=== PATIENT | male | born 1960 | race Caucasian/White ===

== ENCOUNTER 2019-04-22 08:00 | Observation (INO) | payer BC, SELFPAY ==
[2019-04-22] VITALS (10 sets, daily range): BP systolic 117–141; BP diastolic 69–85; PULSE 70–96; RESP 16–20; TEMP 37.3–38.7; O2SAT 91–99; BMI 24.3
--- NOTE | 2019-04-22 | ECHO_ITS ---
Patient Info Name: Lauro Schmidt Age: 58 years : 1960 Gender: Male Ht: 67 in Wt: 155 lbs BSA: 1.83 m2 HR: 70 bpm BP: 120 / 69 mmHg Heart Rhythm: Sinus Rhythm Technical Quality: Good Exam Date: 04/22/2019 4:14 PM Exam Location: [facility] Patient Status: Inpatient Admit Date: 04/22/2019 Staff Ordering Physician: Barbie Rosado NP Learning Support Specialist: Yee Duncan RDCS Attending Provider: Jovana Cain MD Referring Physician: Ashlee KING; Exam Type: CA echo doppler w bubble study Study Info Indications - cva tia Complete two-dimensional, color flow and Doppler transthoracic echocardiogram is performed with agitated saline. Contrast/Agitated Saline Contrast/Ag. Saline: Agitated Saline Amount: 20.00 ml Administered By: Akash Irby RN Existing IV Access: Yes IV Access Condition: patent with no signs of infiltration Summary 1. Left ventricular chamber size, wall thickness, systolic and diastolic function are normal with no regional wall motion abnormalities with an estimated ejection fraction of 65-70%. 2. Right ventricular chamber dimension is mildly enlarged. 3. No pulmonary hypertension, estimated pulmonary arterial systolic pressure is 32 mmHg. 4. No significant valve disease. 5. Atrial septum appears intact. There is no evidence of intracardiac shunting by bubble study during normal respiration. (The bubble study with Valsalva was of poor quality and if TIA is strongly suspected, consider repeating the bubble study w/ Valsalva.). 6. Normal sinus rhythm. Left Ventricle Left ventricular chamber dimension is normal. Left ventricular systolic function is normal, estimated at 65-70%. There is no increased left ventricular wall thickness. Left ventricular septal wall motion is normal. The left ventricular diastolic function is normal. Left ventricular chamber size, wall thickness, systolic and diastolic function are normal with no regional wall motion abnormalities with an estimated ejection fraction of 65-70%. Right Ventricle Right ventricular chamber dimension is mildly enlarged. Right ventricular systolic function is normal. Left Atria Left atrial chamber dimension is normal. Right Atria Right atrial chamber dimension is normal. Atrial Septum Intact interatrial septum visualized by Empty imaging. Atrial septum appears intact. There is no evidence of intracardiac shunting by bubble study during normal respiration. (The bubble study with Valsalva was of poor quality and if TIA is strongly suspected, consider repeating the bubble study w/ Valsalva.). Aortic Valve The aortic valve is trileaflet. There is no aortic valve sclerosis. There is no aortic valve stenosis. There is no aortic valve regurgitation. Pulmonic Valve The pulmonic valve is normal. There is no pulmonic valve stenosis. There is trace pulmonic regurgitation. Mitral Valve The mitral valve has normal leaflets. There is no mitral valve stenosis. There is trace mitral valve regurgitation. Tricuspid Valve The tricuspid valve leaflets are normal. There is no significant tricuspid valve stenosis. There is trace tricuspid valve regurgitation. No pulmonary hypertension, estimated pulmonary arterial systolic pressure is 32 mmHg. Pericardium/Pleural The pericardium appears normal. There is no pericardial effusion. Inferior Vena Cava Normal inferior vena cava with >50% collapse up
--- NOTE | ~2019-04-22 | CT_ITS ---
EXAMINATION: CTA brain carotid EXAM DATE: 04/22/2019 09:32 INDICATION: Stroke, right hemiparesis. TECHNIQUE: Noncontrast head CT. Spiral CTA of the carotid arteries was performed with intravenous i njection 100 cc of Omnipaque 350. Axial, coronal, sagittal reformatted images reviewed. Additional r eformatted images created on dedicated 3-D workstation. NASCET comparable standard used to assess th e degree of arterial stenosis. Spiral CT angiogram cerebral arteries performed with the same intrave nous injection of contrast. Source images of the brain CTA transferred to dedicated workstation for 3 -D rotational image creation. Coronal, sagittal maximum intensity pixel images also reviewed. The d ose-length product (DLP) for this examination was 1671.52 mGy-cm. The exposure was tailored accordi ng to patient size, and iterative reconstruction (ASIR) was used as additional dose reduction techniq ue. Correlation is made to head CT 12/18/2018. FINDINGS: There is 0% carotid stenosis bilaterally. The vertebral arteries are codominant. There is no carotid or vertebral basilar arterial dissection or fibromuscular dysplasia. There are no cerebral artery aneurysms. There is symmetric cerebral artery arborization. The sagittal, transverse and sigm oid sinuses enhance normally, no venous sinus thrombosis. Internal cerebral veins also enhance normal ly. There is no acute intraparenchymal hemorrhage. No evidence of intraparenchymal brain mass lesion. N o evidence of acute infarction. There is no mass effect or midline shift. There is no obstructive hyd rocephalus suspected. There are no extra-axial collections. There are no calvarial acute fractures. There is moderate amount of bilateral ethmoid mucoperiosteal thickening. No sinus air-fluid levels. IMPRESSION: 1. No cervical arterial dissection or cerebral artery aneurysm. 2. No carotid stenosis or other acute findings. Reviewed, dictated and finalized at location B. N GRADER
--- NOTE | ~2019-04-22 | MR_ITS ---
EXAMINATION: MR brain/brain stem wo/w con DATE: 04/23/2019 07:54 INDICATION: Right hemiparesis. TECHNIQUE: Magnetic resonance imaging (MRI) of the brain and brainstem was performed without and with 13 mL MultiHance intravenous contrast. Sequences included sagittal and axial T1-weighted FSE, axial diffusion-weighted FS EPI, axial T2*-weighted GRE, axial T2-weighted FLAIR Propeller, and axial T2-we ighted Propeller. Postcontrast sequences included axial and coronal T1-weighted FSE. Apparent diffusi on coefficient (ADC) maps were created. COMPARISON: Head CTA 04/22/2019 FINDINGS: There are scattered areas of nonspecific increased T2-weighted signal intensity in the cere bral white matter, which is within normal limits for the patient's age. There is no intracranial hemo rrhage, acute infarction, or abnormal intracranial mass lesion. The ventricles are normal in size. Th ere is mucosal thickening in the paranasal sinuses. The orbits are normal. The mastoid air cells are normal. IMPRESSION: 1. Normal aging brain. Reviewed, dictated and finalized at location A. UCT MANAGEMENT SPECIALIST IMPRESSION: 1. Normal aging brain.
--- NOTE | 2019-04-22 08:33 | ED.NEUROSD ---
HPI - Neuro Symptoms/Deficit General Chief Complaint: Neuro Symptoms/Deficit Stated Complaint: R SIDED WEAKNESS Time Seen by Provider: 04/22/19 08:31 Source: patient, family (pt's ) and RN notes reviewed Mode of arrival: ambulatory Limitations: no limitations History of Present Illness HPI Narrative: Pt is a 58 y/o male with a Hx of TIA, who presents to the ED with c/o rt sided numbness and weakness starting this morning. He notes that he developed flu-like symptoms yesterday, including a fever, cough, and body aches. Pt states that he woke up this morning aproximately 6 AM with numbness and weakness in his rt upper and lower extremities. He notes that he has had difficulty ambulating due to the weakness in his rt leg. Difficulty lifting and handling things with RUE. His also notes that the pt felt nauseas immediately after waking up. Pt states that he was evaluated here roughly 3 months ago for syncope and similar rt sided weakness. Several years ago he was hospitalized @ [facility] with similar R side weakness in the context of an acute illness. He notes that he was advised his previous TIA was secondary to a rapid spike in his BP. Onset (ago): hour(s) (1-2) Location: right arm and right leg History of same: Yes Quality: weak and numb Context: other (woke up with symptoms) Associated symptoms: cough, fever/chills (fever), nausea/vomiting (nausea (per )) and other (troubled gait; body aches) Related Data Home Medications Medication Instructions Recorded Confirmed albuterol sulfate [ProAir HFA] 1 inh INHALATION QID PRN 04/22/19 amlodipine 10 mg 04/22/19 beclomethasone dipropionate [Qvar INHALATION 04/22/19 RediHaler] Allergies Allergy/AdvReac Type Severity Reaction Status Date / Time Sulfa (Sulfonamide Allergy Mild Other Verified 04/22/19 08:17 Antibiotics) Review of Systems Review of Systems: All systems reviewed & are unremarkable except as noted in HPI and below Constitutional: Constitutional: Reports body ache(s) and Reports fever(s) Respiratory: Respiratory: Reports cough Gastrointestinal: Gastrointestinal: Reports nausea (per ) Neurologic: Reports abnormal gait, Reports focal weakness (rt sided weakness) and Reports numbness (numbness on rt side) PMFSH Past Medical History Medical History HTN (hypertension) TIA (transient ischemic attack) Surgical History Surgical History No significant past surgical history Social History Social History Smoking status: Never smoker Comments PCP is Dr. Jefry Warner. Exam Const: General: healthy appearing, no acute distress and well developed Nutritional Appearance: well nourished Orientation/consciousness: patient oriented x3 (alert) and Other orientation findings (Alert) Limitations: no limitations HENMT: Head: normocephalic and atraumatic Resp: Effort & Inspection: normal respiratory effort Auscultation: clear to auscultation bilaterally, no rales, no rhonchi, no wheezes and other (breath sounds equal) Cardio: Rate: regular rate Rhythm: regular rhythm Heart sounds: no gallops and no murmurs GI: Inspection: non-distended GI Palp: No abdominal tenderness and Yes Soft to palpation Auscultation: other (bowel sounds present) Skin: General skin exam: normal color and no rashes or lesions noted Neuro: General: patient oriented x3 (alert) and moves all extremities Cranial nerves: Yes CN's II-XII intact bilaterally and Yes facial symmetry Speech: normal speech Motor exam (neuro): Pronator motor function present (slight drift in rt hand) and Other motor observations present (weakness in rt arm and rt leg) Extrem: General: normal to inspection, full ROM and no pedal edema Psych: Affect: normal affect Course Consultations Consultation #1: Discussed case with Dr. Sinha from the stroke service
--- NOTE | 2019-04-22 08:39 | ECG_ITS ---
Measurements Intervals [place] Rate: 79 P: 53 ND: 172 QRS: -7 QRSD: 84 T: -14 QT: 392 QTc: 451 Interpretive Statements SINUS RHYTHM INCOMPLETE RIGHT BUNDLE BRANCH BLOCK NONSPECIFIC ST & T-WAVE ABNORMALITY- DIFFUSE LEADS BORDERLINE ECG Electronically Signed On 04-22-2019 10:34:14 CLINICAL APPLICATION SPECIALIST by Lucas Parks D.O.
[2019-04-22 09:03] LABS: Blood Urea Nitrogen 13 mg/dL (8-26); Estimated CRCL calculation 68 ml/min; Estimated Glomerular Filt Rate > 60
[2019-04-22] MEDS: LACTATED RINGERS 1,000 ML 999 ML IV CONT (09:24)
[2019-04-22] MEDS: ACETAMINOPHEN 500 MG TABLET 1000 MG PO (09:24)
[2019-04-22 09:32] LABS: Basophils Absolute Auto 0.1 K/mm3 (0.0-0.1); Basophils Percent Auto 0.9 % (0.2-1.2); Eosinophils Absolute Auto 0.1 K/mm3 (0-0.3); Eosinophils Percent Auto 0.8 % (0-4.4); Hematocrit 40.6 % (42.0-52.0); Hemoglobin 13.9 g/dL (14.0-18.0); Immature Granulocyte Absolute 0.03 K/mm3 (0.00-0.031); Immature Granulocyte Percent A 0.4 % (0-0.5); Lymphocytes Absolute Auto 0.31 K/mm3 (0.9-3.2); Mean Corpuscular HGB Conc 34.2 g/dl (32-36); Mean Corpuscular Hemoglobin 28.7 pg (26-34); Mean Corpuscular Volume 83.9 fl (80-100); Mean Platelet Volume 9.6 fl (7.4-10.4); Monocytes Absolute Auto 0.8 K/mm3 (0.1-0.6); Monocytes Percent Auto 10.3 % (2.6-8.5); Neutrophils Absolute Auto 6.5 K/mm3 (1.3-6.7); Neutrophils Percent Auto 83.6 % (45.5-73.1); Platelet Count Result 267 k/mm3 (150-375); Red Blood Count 4.84 M/mm3 (4.6-6.20); Red Cell Distribution Width 12.3 % (11.5-14.5); White Blood Count 7.8 K/mm3 (4.5-10.0)
[2019-04-22 09:43] LABS: Prothrombin Time 12.7 Seconds (11.1-14.7)
[2019-04-22 09:44] LABS: Alanine Aminotransferase 36 U/L (4-50); Albumin Level 4.4 g/dL (3.5-5.1); Alkaline Phosphatase 84 U/L (38-126); Aspartate Amino Transferase 32 U/L (17-59); Bilirubin,Total 1.2 mg/dL (0.2-1.3); Blood Urea Nitrogen 14 mg/dL (9-20); Carbon Dioxide 24 mmol/L (22-30); Chloride 102 mmol/L (98-107); Estimated CRCL calculation 68 ml/min; Estimated Glomerular Filt Rate > 60; Glucose 101 mg/dL (75-110); Partial Thromboplastin Time 28.3 SECONDS (22.3-36.8); Potassium 3.4 mmol/L (3.4-5.0); Sodium 137 mmol/L (137-145)
--- NOTE | 2019-04-22 12:35 | PC.NURSE ---
This patient, Lauro Shcmidt, was admitted to Medical Room 253-01. Patient/family oriented to hospital policies and general routines including ID bracelet, bed and alarms, visiting hours, pain management, procedures, bathroom and other care routines, personal items, smoking policy, room service/diet, and visiting hours. Valuables list has been completed. Information on how to activate the Rapid Response Team has been discussed. Patient/Family are encouraged to report perceived risks to care and to ask questions if they do not understand what they are told or what they should do.
--- NOTE | 2019-04-22 16:01 | PM.IMHP ---
H&P: HPI History of Present Illness Chief complaint: Influenza A/r side weakness Narrative: Lauro Schmidt is a 58 year old male who stated that he has had a TIA in the past at least 2 times. The patient stated that his is recovering from influenza. He woke up this morning with flu-like symptoms. Also when he woke up at 6:00 a.m. this morning he complained of some numbness and weakness is right upper extremity lower extremity. He does not take daily aspirin. He was on a daily aspirin at 1 time but his primary care doctor told him to stop taking it. He did not taken aspirin today. Patient difficulty in handling items that he would berry picker this morning. This is now resolved. Patient stated that he was evaluated approximately 3 months ago for syncope and similar right-sided weakness at [facility]. Patient was found to be positive for influenza a today. Date of service 04/22/2019. CT of the head and neck was read as no cervical arterial dissection are cerebral artery aneurysm. No carotid stenosis or other acute findings. Review of Systems Review of Systems: Narrative: Flu-like symptoms with cough, fever, chills,and body aches. All systems reviewed & are unremarkable except as noted in HPI and below Constitutional: Constitutional: Reports as per HPI, Reports no additional constitutional complaints, Reports body ache(s), Reports chills, Reports difficulty sleeping, Reports fatigue, Reports fever(s) and Reports weakness (Right-sided weakness the upper and lower extremities now resolved) Eyes: Eyes: Reports as per HPI and Reports no additional eye complaints ENT: Reports system reviewed and no additional complaints, except as documented and Reports Normal hearing present Cardiovascular: Cardiovascular: Reports no additional cardiovascular complaints Respiratory: Respiratory: Reports as per HPI, Reports no additional respiratory complaints, Reports no additional respiratory complaints, Reports cough and Reports snoring Gastrointestinal: Gastrointestinal: Reports as per HPI and Reports no additional gastrointestinal complaints Musculoskeletal: Musculoskeletal: Reports no additional musculoskeletal complaints Integumentary/Breasts: Skin/Breast: Reports system reviewed and no additional complaints, except as docu and Reports as per HPI Neurologic: Reports system reviewed and no additional complaints, except as documented, Reports as per HPI and Reports Normal hearing present Psychiatric: Psychiatric: Reports no additional psychiatric complaints and Reports as per HPI Endocrine: Endocrine: Reports no additional endocrine complaints Hematologic/Lymphatic: Hematologic/Lymphatic: Reports no additional hematologic/lymphatic complaints Allergic/Immunologic: Allergic/Immunologic: Reports no additional allergic/immunologic complaints [facility] Past Medical History Medical History (Updated 04/22/19 @ 16:15 by Barbie Rosado NP) HTN (hypertension) TIA (transient ischemic attack) Surgical History Surgical History (Updated 04/22/19 @ 16:11 by Barbie Rosado NP) Hx of cholecystectomy Family History Family History (Updated 04/22/19 @ 16:13 by Barbie Rosado NP) Unknown Family history unknown Social History Social History Smoking status: Never smoker Alcohol intake: current Drinks per week: 1 Substance use: never Gender identity (if verbalized by the patient): Male Spiritual care concerns: No Agree to blood products: Yes Meds Home Medications and Allergies Home Medications Medication Instructions Recorded Confirmed Type albuterol sulfate [ProAir HFA] 1 inh INHALATION QID PRN 04/22/19 04/22/19 History amlodipine 10 mg PO DAILY 04/22/19 04/22/19 History beclomethasone dipropionate [Qvar 1 inh INHALATION DAILY 04/22/19 04/22/19 History RediHaler] Allergies Allergy/AdvReac Type Severity Reaction Status Date / Time Sulfa (Sulfonam
[2019-04-22] MEDS: OSELTAMIVIR PHOSPHATE 75 MG CAP PO (17:20)
[2019-04-22] MEDS: ACETAMINOPHEN 325 MG TABLET 650 MG PO (21:32)
[2019-04-23] VITALS (9 sets, daily range): BP systolic 124–139; BP diastolic 64–79; PULSE 73–87; RESP 16–20; TEMP 36.3–37.9; O2SAT 91–96
--- NOTE | 2019-04-23 | ECHO_ITS ---
Patient Info Name: Lauro Schmidt Age: 58 years : 1960 Gender: Male Ht: 67 in Wt: 154 lbs BSA: 1.82 m2 HR: 84 bpm BP: 139 / 73 mmHg Technical Quality: Good Exam Date: 04/23/2019 9:49 AM Exam Location: [facility] Pulmonary Exam Room: [facility] Patient Status: Outpatient Admit Date: 04/22/2019 Staff Ordering Physician: Flo Guzman PA-C Orderlies Teacher: Yee Duncan RDCS Attending Provider: Flo Guzman PA-C Referring Physician: Thomas ABURTO; Exam Type: CA echo limited w bubble study Study Info Indications - cva /tia Limited two-dimensional transthoracic echocardiogram is performed with agitated saline. Contrast/Agitated Saline Contrast/Ag. Saline: Agitated Saline Amount: 20.00 ml Administered By: Guillermo Velásquez RN Existing IV Access: Yes IV Access Condition: patent with no signs of infiltration New IV Access: Left Summary 1. Intact interatrial septum visualized by agitated saline imaging. 2. Saline contrast was given with and without Valsalva showing no evidence of intracardiac shunt. Atrial Septum Intact interatrial septum visualized by agitated saline imaging. Saline contrast was given with and without Valsalva showing no evidence of intracardiac shunt. Report Signatures
[2019-04-23 05:41] LABS: Basophils Absolute Auto 0.1 K/mm3 (0.0-0.1); Basophils Percent Auto 0.6 % (0.2-1.2); Eosinophils Percent Auto 0.4 % (0-4.4); Hematocrit 40.4 % (42.0-52.0); Hemoglobin 13.6 g/dL (14.0-18.0); Immature Granulocyte Absolute 0.04 K/mm3 (0.00-0.031); Immature Granulocyte Percent A 0.5 % (0-0.5); Lymphocytes Absolute Auto 0.57 K/mm3 (0.9-3.2); Lymphocytes Percent Auto 7.1 % (18.3-44.2); Mean Corpuscular HGB Conc 33.7 g/dl (32-36); Mean Corpuscular Hemoglobin 28.7 pg (26-34); Mean Corpuscular Volume 85.2 fl (80-100); Mean Platelet Volume 9.5 fl (7.4-10.4); Monocytes Absolute Auto 0.9 K/mm3 (0.1-0.6); Monocytes Percent Auto 10.8 % (2.6-8.5); Neutrophils Absolute Auto 6.5 K/mm3 (1.3-6.7); Neutrophils Percent Auto 80.6 % (45.5-73.1); Platelet Count Result 235 k/mm3 (150-375); Red Blood Count 4.74 M/mm3 (4.6-6.20); Red Cell Distribution Width 12.2 % (11.5-14.5)
[2019-04-23 05:43] LABS: Blood Urea Nitrogen 15 mg/dL (9-20); Calcium 8.3 mg/dL (8.4-10.2); Carbon Dioxide 24 mmol/L (22-30); Chloride 101 mmol/L (98-107); Estimated CRCL calculation 68 ml/min; Estimated Glomerular Filt Rate > 60; Glucose 84 mg/dL (75-110); Potassium 3.4 mmol/L (3.4-5.0); Sodium 136 mmol/L (137-145)
[2019-04-23] MEDS: OSELTAMIVIR PHOSPHATE 75 MG CAP PO ×2 (08:57→21:14)
[2019-04-23] MEDS: AMLODIPINE BESYLATE 5 MG TABLET 10 MG PO (08:57)
[2019-04-23] MEDS: ASPIRIN 81 MG CHEWABLE TABLET PO (08:57)
--- NOTE | 2019-04-23 16:51 | PM.IMPN ---
Progress Note: A&P Assessment and Plan (1) TIA (transient ischemic attack): Code(s): G45.9 - Transient cerebral ischemic attack, unspecified Status: Acute Assessment and Plan: Symptoms have resolved today. He is now on an aspirin. Imaging yesterday and today is grossly unremarkable. Tele shows occasional PVCs, otherwise NSR without other ectopy; asymptomatic Neurology has been consulted and appreciate recommendations. Patient okay for discharge from his standpoint Will monitor overnight as monitoring for Flu D/c tele (2) Influenza A: Code(s): J10.1 - Influenza due to other identified influenza virus with other respiratory manifestations Status: Acute Assessment and Plan: Patient is satting low 90s today on RA. Slight fever up until this morning. Clincally improving Will observe over night and possibly discharge tomorrow if continued improvement IS ordered and encouraged. Continue symptomatic relief with Tylenol Continue Tamiflu (3) HTN (hypertension): Code(s): I10 - Essential (primary) hypertension Status: Chronic Assessment and Plan: BP has been well controlled during stay. Continue with Norvasc Monitor Subjective Date/time seen: 04/23/19 16:51 Interval history: Patient is a 58 yo M with history of HTN and TIAs in the past who is here for Influenza and evaluation for weakness/numbness in right upper/lower extremities. Patient is improving symptomatically today. He states his numbness/weakness is nearly resolved in his right extremities. His cough (dry) and shortness of breath is improving. He had some fevers last night but this is also improving. He otherwise has no complaints today. Denies headaches, dizziness, lightheadedness, changes in v/h, sudden blindness, cp/palpitations, n/v/d/c, abd pain, dysphagia, melena, brbpr, dysuria, hematuria, cloudy urine, calf pain/swelling. Review of Systems Review of Systems: All systems reviewed & are unremarkable except as noted in HPI and below Exam Narrative: Exam Narrative: Patient lying supine in bed with head raised at time of visit. is at bedside visiting Const: General: comfortable, no acute distress, well developed, alert, ill appearing acutely and tired appearing Orientation/consciousness: patient oriented x3 HENMT: Head: normocephalic and atraumatic Ears: external ears normal General nose exam: Normal external nose present and Normal nares present Face and sinus: face symmetric Mouth: Yes lip normal and Yes moist mucous membranes Teeth and gingiva: fair dentition Throat: posterior oropharynx normal and uvula midline Eyes: General: appearance normal, both eyes and all related structures Sclera: sclerae normal Pupils: Equal, round and reactive pupils present EOM: EOMs intact bilaterally Neck: Neck: trachea midline and supple Resp: Effort & Inspection: normal respiratory effort Auscultation: clear to auscultation bilaterally Cardio: Rate: regular rate Rhythm: regular rhythm Heart sounds: no gallops, no murmurs and no rubs GI: Inspection: non-distended GI Palp: No abdominal tenderness and Yes Soft to palpation Auscultation: normal bowel sounds Skin: General skin exam: normal color and no rashes or lesions noted Neuro: General: patient oriented x3, moves all extremities and no focal motor deficits Motor exam (neuro): 5/5 motor strength present throughout Sensory Exam: normal sensation Extrem: Right lower extremity: no edema Left lower extremity: no edema Other: no calf ttp/swelling Psych: Mental Status: mental status grossly normal Affect: normal affect Objective Data Vital Signs Vital Signs: Vital Signs - 24 hr 04/22/19 20:00 04/22/19 21:32 04/22/19 21:46 Temperature 101.7 F H 101.7 F H Pulse Rate 72 96 Respiratory Rate 20 Blood Pressure 141/72 H Pulse
--- NOTE | 2019-04-23 19:01 | CONS_ITS ---
DATE OF CONSULTATION: 04/22/2019 HISTORY OF PRESENT ILLNESS: This 58 years old right-handed male, admitted to the hospital with the information that he has had 2 TIAs in the past. At present, his is recovering from influenza. He woke up in the morning with flu-like symptoms, experienced numbness and weakness in the right upper extremity and lower extremity. He had been on daily aspirin, which was recently stopped by his primary physician. He had difficulties in picking up the items in the morning, which was subsequently resolved. About 3 months ago, he was evaluated for the syncope with right-sided weakness at [facility]. On today's visit, he was found to be positive for the influenza. Otherwise, his general physical examination was normal. PAST MEDICAL HISTORY: He does have ongoing history of: 1. Hypertension. 2. TIA. 3. Cholecystectomy. 4. No smoking. 5. Drinking 1 drink per week. MEDICATIONS: At the time of admission to the hospital, he was taking amlodipine 10 mg daily, nasal inhalers, and albuterol sulfate inhaler. PHYSICAL EXAMINATION: VITAL SIGNS: He was notedly afebrile with pulse of 91, respiration 18, blood pressure 122/85, pulse ox 97%. GENERAL: Revealed him to be awake, alert, cooperative, comfortable, in no acute distress. HEENT: Head normocephalic with no cranial bruit. Ears, nose, throat examination normal. NECK: Supple with no cervical bruit. No meningeal signs. No thyromegaly. No lymphadenopathy. HEART: Regular. LUNGS: Clear. ABDOMEN: Soft. NEUROLOGICAL: Awake, alert, cooperative. Speech not dysphasic, not dysarthric. Pupils round, regular. Mayo of vision full. Extraocular movements full. Face symmetrical. Tongue midline. Motor examination revealed no drift of 1 side or other side. Reflexes symmetrical. Plantars downgoing. IMPRESSION: With negative CT scan of the head, negative head and neck CTA, most likely diagnosis will be transient ischemic attack. The patient is receiving all his medication as such and we will continue the treatment as such. He is receiving aspirin 81 mg daily. Further recommendation accordingly. LIBIA MANUEL M.D. WELL DRILL OPERATOR ROTARY DRILL WELL DRILL OPERATOR ROTARY DRILL D I MT: Miahela
--- NOTE | 2019-04-23 19:06 | CONS_ITS ---
DATE OF CONSULTATION: HISTORY: This 58-year-old right-handed male has been admitted to [facility] through the emergency room with the history that he woke up in the morning with flu like symptoms, as his is recovering from the flu. He has experienced some numbness and weakness of the right upper extremity and right lower extremity. He had been taking aspirin daily, which he had recently stopped because of his family physician. About 3 months ago, he was evaluated for the so-called syncopal episode at [facility] when there was no finding of any circulatory problems. He does have ongoing history of 1. Hypertension. 2. TIA. 3. Cholecystectomy. SOCIAL HISTORY: He is not a smoker. Drinks 1 drink per week. ALLERGIES: EVALUATION UP UNTIL NOW REVEALED HIM TO BE ALLERGIC TO SULFA. PHYSICAL EXAMINATION: VITAL SIGNS: Are stable. Blood pressure 122/85. GENERAL: Normal. He was awake, alert, cooperative, in no obvious acute distress. HEENT: Head, normocephalic with no cranial bruit. Ear, nose, throat examination was normal. NECK: Supple with no cervical bruit. No thyromegaly. No lymphadenopathy. HEART: Regular. LUNGS: Clear. ABDOMEN: Soft. NEUROLOGICAL: He was awake, alert. His speech not dysphasic, no dysarthric, not dysphonic. Pupils round, regular. Mayo of vision full. Extraocular movements full. Face symmetrical. Tongue midline. Motor examination revealing no drift of 1 side or other side. Reflexes were symmetrical. Plantars were downgoing. Evaluation up until included the normal basic metabolic panel, hepatic enzyme, negative CT scan of the head, and negative CTA. IMPRESSION: The patient has been admitted to the hospital for the diagnosis of TIA. He has been started on aspirin 81 mg daily to be continued as such and further recommendation will be accordingly. LIBIA MANUEL M.D. [employer] K[employer] D I MT: Mihaela
[2019-04-23] MEDS: POTASSIUM CHLORIDE 20 MEQ TABLET 40 MEQ PO (21:14)
[2019-04-24] VITALS: PULSE 79
[2019-04-24 04:00] VITALS: PULSE 66
[2019-04-24 05:43] VITALS: BP 128/74; PULSE 62; RESP 16; TEMP 36.7; O2SAT 95
[2019-04-24 06:31] LABS: Basophils Absolute Auto 0.1 K/mm3 (0.0-0.1); Basophils Percent Auto 0.7 % (0.2-1.2); Eosinophils Absolute Auto 0.2 K/mm3 (0-0.3); Eosinophils Percent Auto 3.6 % (0-4.4); Hematocrit 37.2 % (42.0-52.0); Hemoglobin 12.5 g/dL (14.0-18.0); Immature Granulocyte Absolute 0.02 K/mm3 (0.00-0.031); Immature Granulocyte Percent A 0.3 % (0-0.5); Lymphocytes Absolute Auto 0.75 K/mm3 (0.9-3.2); Lymphocytes Percent Auto 11.2 % (18.3-44.2); Mean Corpuscular HGB Conc 33.6 g/dl (32-36); Mean Corpuscular Hemoglobin 28.2 pg (26-34); Mean Platelet Volume 9.6 fl (7.4-10.4); Monocytes Absolute Auto 0.7 K/mm3 (0.1-0.6); Neutrophils Absolute Auto 4.9 K/mm3 (1.3-6.7); Neutrophils Percent Auto 73.2 % (45.5-73.1); Platelet Count Result 229 k/mm3 (150-375); Red Blood Count 4.43 M/mm3 (4.6-6.20); Red Cell Distribution Width 12.1 % (11.5-14.5); White Blood Count 6.7 K/mm3 (4.5-10.0)
[2019-04-24 06:43] LABS: Blood Urea Nitrogen 15 mg/dL (9-20); Carbon Dioxide 26 mmol/L (22-30); Chloride 100 mmol/L (98-107); Estimated CRCL calculation 75 ml/min; Estimated Glomerular Filt Rate > 60; Glucose 94 mg/dL (75-110); Magnesium 2.1 mg/dL (1.6-2.3); Potassium 3.6 mmol/L (3.4-5.0); Sodium 137 mmol/L (137-145)
[2019-04-24 07:39] VITALS: PULSE 65; RESP 16
[2019-04-24 07:43] VITALS: PULSE 65; RESP 16
[2019-04-24 08:00] VITALS: PULSE 61
[2019-04-24] MEDS: AMLODIPINE BESYLATE 5 MG TABLET 10 MG PO (09:10)
[2019-04-24] MEDS: OSELTAMIVIR PHOSPHATE 75 MG CAP PO (09:10)
[2019-04-24] MEDS: ASPIRIN 81 MG CHEWABLE TABLET PO (09:10)
--- NOTE | 2019-04-24 11:14 | PM.DS ---
DS: Diagnosis Admitting Diagnosis Admitting Diagnosis: Transient cerebral ischemic attack, unspecified Discharge Diagnosis (1) TIA (transient ischemic attack): Code(s): G45.9 - Transient cerebral ischemic attack, unspecified Status: Acute Assessment and Plan: Symptoms have resolved today. He is now on an aspirin. Imaging during stay is grossly unremarkable. Tele shows occasional PVCs, otherwise NSR without other ectopy; asymptomatic Neurology has been consulted and appreciate recommendations. Patient okay for discharge from their standpoint D/c today (2) Influenza A: Code(s): J10.1 - Influenza due to other identified influenza virus with other respiratory manifestations Status: Acute Assessment and Plan: Patient is satting mid 90s today on RA. Clincally improved. Afebrile for roughly 24 hours. VSS. WBC normal. IS ordered and encouraged. Continue symptomatic relief with OTC Tylenol Continue Tamiflu at discharge Follow up with PCP following week of discharge (3) HTN (hypertension): Code(s): I10 - Essential (primary) hypertension Status: Chronic Assessment and Plan: BP has been well controlled during stay. Continue with Norvasc DS: Summary Hospital Course Reason for hospitalization: TIA; Influenza A Hospital Course: Patient is a 58 yo M with history of HTN and TIA who presented to the ER on 04/22 with complaints of flu like symptoms and numbness/weakness of right UE/LE which resolved by time of admission. He tested positive for Influenza A in ER. Please see H&P for further details Presenting VS: BP 122/85, HR 91, RR 18, temp 100, sat 97% RA Presenting Pertinent labs: H&H 13.9/40.6, MCV 83.9. CMP, CBC, coags otherwise unremarkable. Micro: Influenza A positive Imagin/30 Echo Summary 1. Left ventricular chamber size, wall thickness, systolic and diastolic function are normal with no regional wall motion abnormalities with an estimated ejection fraction of 65-70%. 2. Right ventricular chamber dimension is mildly enlarged. 3. No pulmonary hypertension, estimated pulmonary arterial systolic pressure is 32 mmHg. 4. No significant valve disease. 5. Atrial septum appears intact. There is no evidence of intracardiac shunting by bubble study during normal respiration. (The bubble study with Valsalva was of poor quality and if TIA is strongly suspected, consider repeating the bubble study w/ Valsalva.). 6. Normal sinus rhythm. 04/22 Head/Neck CTA IMPRESSION: 1. No cervical arterial dissection or cerebral artery aneurysm. 2. No carotid stenosis or other acute findings. 04/23 Brain MRI IMPRESSION: 1. Normal aging brain. 04/23 Echo Limited Bubble study Summary 1. Intact interatrial septum visualized by agitated saline imaging. 2. Saline contrast was given with and without Valsalva showing no evidence of intracardiac shunt. ECG: Interpretive Statements SINUS RHYTHM INCOMPLETE RIGHT BUNDLE BRANCH BLOCK NONSPECIFIC ST & T-WAVE ABNORMALITY- DIFFUSE LEADS BORDERLINE ECG Patient was admitted to the hospitalist service for further evaluation; Dr. Urena (Neurology) was consulted for further input/management of right sided weakness/numbness. Imaging was unremarkable for acute stroke; it was felt that this may be another TIA. Patient was placed on a 81 mg aspirin per Neurology recommendations. As stated above, these symptoms had resolved. He did make note that his prior TIAs were during a period of illness, much like his presentation to the hospital this time. Patient was also started on Tamiflu for his flu. Patient clinically improved during stay and patient was hemodynamically stable and improved condition on day of discharge on 04/24. Patient was to follow up with Neurology as needed and to follow up with PCP next week as discussed. He was to continue
--- NOTE | 2019-04-24 12:05 | WPDNEUROPN ---
Progress Note: A&P Additional Plan stable /discussed/TIA Review of Systems Review of Systems: All systems reviewed & are unremarkable except as noted in HPI and below Exam Const: General: cooperative, comfortable, no acute distress, alert and awake Nutritional Appearance: average body habitus Eyes: Pupils: Equal, round and reactive pupils present and Pupils normal by confrontation Direct Ophthalmoscopy: normal light reflex Neck: Neck: full ROM and no lymphadenopathy Resp: Effort & Inspection: normal respiratory effort Auscultation: clear to auscultation bilaterally Cardio: Rhythm: regular rhythm GI: Auscultation: normal bowel sounds Neuro: General: patient oriented x3, gait normal, tone normal, no focal motor deficits and CN's II-XI intact bilaterally Cranial nerves: Yes CN's II-XII intact bilaterally Speech: normal speech Sensory Exam: normal sensation Deep tendon reflexes (DTR's): Right triceps reflex intensity grade: 1+, Left triceps reflex intensity grade: 1+, Rt Biceps (C5, C6): 1+, Left biceps reflex intensity grade: 1+, Right brachioradialis reflex intensity grade: 1+, Left brachioradialis reflex intensity grade: 1+, Right patellar reflex intensity grade: 1+, Left patellar reflex intensity grade: 1+, Right ankle reflex intensity grade: 1+ and Left ankle reflex intensity grade: 1+ Plantar Reflex Responses: downgoing: bilateral Coordination: [id number] test normal and [id number] test normal Psych: Appearance: grossly normal Objective Data Vital Signs Vital Signs: Vital Signs - 24 hr 04/23/19 14:00 04/23/19 16:00 04/23/19 20:00 Temperature 36.3 C L Pulse Rate 76 76 76 Respiratory Rate 16 Blood Pressure 124/64 Pulse Oximetry 94 04/23/19 22:00 04/24/19 00:00 04/24/19 04:00 Temperature 36.8 C Pulse Rate 73 79 66 Respiratory Rate 16 Blood Pressure 135/79 Pulse Oximetry 96 04/24/19 05:43 04/24/19 07:39 04/24/19 07:43 Temperature 36.7 C Pulse Rate 62 65 65 Respiratory Rate 16 16 16 Blood Pressure 128/74 Pulse Oximetry 95 04/24/19 08:00 Temperature Pulse Rate 61 Respiratory Rate Blood Pressure Pulse Oximetry Intake/Output Intake/Output: Intake & Output 01/04/22/19 04/23/19 04/24/19 23:59 23:59 23:59 23:59 Intake Total 1360 1670 320 Output Total 600 550 Balance 1360 1070 -230 Meds/Results Medications: Active Medications Generic Name Dose Route Start Last Admin Trade Name Freq PRN Reason Stop Dose Admin Acetaminophen 650 mg 04/22/19 10:49 04/22/19 21:32 Tylenol Tablet PO 650 mg Q4H PRN Administration Mild Pain (1-3) or Fever Albuterol 1 puff 04/22/19 16:18 Proventil Hfa INHALATION QID PRN Shortness OF BREATH Amlodipine Besylate 10 mg 04/23/19 09:00 04/24/19 09:10 Norvasc PO 10 mg DAILY DANNY Administration Aspirin 81 mg 04/23/19 08:00 04/24/19 09:10 Aspirin Chewable PO 81 mg DAILY@0800 DANNY Administration Beclomethasone Dipropionate 1 puff 04/23/19 08:00 04/24/19 07:38 Qvar 80 Mcg INHALATION 1 puff DAILYRT DANNY Administration Oseltamivir Phosphate 75 mg 04/22/19 17:00 04/24/19 09:10 Tamiflu PO 04/27/19 17:01 75 mg Q12HR DANNY Administration Radiology Results: ITS Impressions Head/Neck CTA 04/22/19 09:58 IMPRESSION: 1. No cervical arterial dissection or cerebral artery aneurysm. 2. No carotid stenosis or other acute findings. Brain MRI 04/23/19 08:33 IMPRESSION: 1. Normal aging brain. Labs Labs: Laboratory Results - last 24 hr 04/24/19 04/24/19 05:33 05:33 WBC 6.7 RBC 4.43 L Hgb 12.5 L Hct 37.2 L MCV 84.0 MCH 28.2 MCHC 33.6 RDW 12.1 Plt Count 229 MPV 9.6 Immature Gran % (Auto) 0.3 Neut % (Auto) 73.2 H Lymph % (Auto) 11.2 L [place] % (Auto) 11.0 H Eos % (Auto) 3.6 Baso % (Auto) 0.7 Lymph # (Auto) 0.75 L [place] # (Auto) 0.7 H Eos # (Auto) 0.2 Baso # (Auto) 0.1 Abs
== END 2019-04-24 12:15 | disposition home or self-care (01) ==
LOC: ANHED 11:06 → ANH2MED 04-23 06:49
PROVIDERS: Nurse Practitioner; Physician Assistant; Admitting Provider Family Medicine; Emergency Provider Emergency Medicine; Visit Provider Internal Medicine
DX: G45.9 Transient cerebral ischemic attack, unspecified (principal); J10.1 Influenza due to other identified influenza virus with other respiratory manifestations; I10 Essential (primary) hypertension; Z79.899 Other long term (current) drug therapy; Z86.73 Personal history of transient ischemic attack (TIA), and cerebral infarction without residual deficits; Z88.2 Allergy status to sulfonamides
CPT/HCPCS: 36415; 70496; 70498; 70553; 80048; 80053; 83735; 85025; 85610; 85730; 87804; 92610; 93005; 93306; 93308; 94640; 96360; 96375; 99285; A9270; A9577; G0378; J7120; Q9967